=== PATIENT | male | born 1930 | race Caucasian/White ===

== ENCOUNTER 2017-05-20 18:06 | Emergency (ER) | payer OTHER ==
[~2017-05-20] VITALS: Ht 167.6 cm; Wt 96.1 kg
[~2017-05-20 18:06] MED LIST: ADULT LOW DOSE81 M1 PO; ASPIRIN81 M1 PO; CALICUM 500+D1 EACH PO; CIPROFLOXACIN H10 ML LEFT EYE; COLACE100 MG PO; Caltrate 600/400 PO; ENALAPRIL MALEA20 M1 PO; ENALAPRIL MALEA20 MG PO; FEOSOL325 MG PO; GLUCOSA-CHOND-1 EACH PO; GLUCOSAMIN-CHO1 EACH PO; METOPROLOL SUCC50 MG PO; MULTI-VITAMIN1 EAC4 PO; Move Free Advanced T PO; Naprosyn PO; PRAVASTATIN SOD20 MG PO; PROMETHAZINE HC25 M1 PO; PROTONIX40 MG PO; Phenergan PO; TOPROL XL50 MG PO; Theragran PO; VASOTEC10 MG PO; XARELTO10 MG PO; XARELTO20 MG PO; Xarelto PO; ZOCOR20 MG PO; Zocor PO
[2017-05-20 18:43] LABS: BASOPHIL (%) 0.6 % (0-1); EOSINOPHIL (%) 0.9 % (0-5); EOSINOPHIL COUNT 0.1 K/uL (0-0.3); HEMATOCRIT 41.2 % (38.0-50.0); HEMOGLOBIN 14.2 G/DL (12.5-16.6); IMMATURE GRANULOCYTE (%) 0.3 % (0.0-0.7); LYMPHOCYTE (%) 15.7 % (15-42); MCH 34.1 PG (29.0-34.0); MCHC 34.5 G/DL (30.0-36.0); MCV 98.8 FL (86-99); MONOCYTE (%) 15.1 % (3-12); NEUTROPHIL (%) 67.4 % (45-76); NEUTROPHIL COUNT 4.4 K/uL (1.8-6.4); PLATELET COUNT 153 K/uL (156-360); RBC DIS.WIDTH-SD 43.8 % (39-53); RED BLOOD COUNT 4.17 M/uL (4.00-5.50); WHITE BLOOD COUNT 6.5 K/uL (4.1-10.2)
[2017-05-20 18:50] LABS: INTER. NORMALIZED RATIO 1.4
[2017-05-20 18:53] LABS: CHLORIDE 107 mEq/L (99-109); POTASSIUM 4.6 mEq/L (3.7-5.4); PTT 33.2 SEC (25-37); SODIUM 139 mEq/L (136-147)
[2017-05-20 18:54] LABS: GLUCOSE 109 mg/dL (70-99)
[2017-05-20 18:58] LABS: GFR ESTIMATE (CALCULATED) > 59 mL/min/ (58.99-99999)
[2017-05-20 18:59] LABS: UREA NITROGEN (BUN) 11 mg/dL (9-23)
[2017-05-20 19:05] LABS: TROP-I INTERPRETATION NEGATIVE; TROPONIN-I < 0.01 ng/mL (0.0-0.30)
[2017-05-20 20:04] LABS: MAGNESIUM 1.8 mg/dL (1.3-2.7)
[2017-05-20 20:46] VITALS: BP 157/98
== END 2017-05-20 20:46 | disposition home or self-care (01) ==
LOC: EME 18:06
PROVIDERS: Emergency Medicine
DX: R00.2 Palpitations (principal); I48.91 Unspecified atrial fibrillation; E78.5 Hyperlipidemia, unspecified; I10 Essential (primary) hypertension; Z87.440 Personal history of urinary (tract) infections; Z88.1 Allergy status to other antibiotic agents; Z88.0 Allergy status to penicillin
CPT/HCPCS: 71045; 80048; 83735; 84443; 84484; 85025; 85610; 85730; 93005; 99281; 99284

== ENCOUNTER 2017-07-26 15:59 | Observation (INO) | payer OTHER ==
[~2017-07-26] VITALS: Ht 170.2 cm; Wt 91.6 kg
[~2017-07-26 15:59] MED LIST changes: -VASOTEC10 MG PO; +VASOTEC20 MG PO; +ZOCOR10 MG PO
[2017-07-26 18:02] LABS: BASOPHIL (%) 0.4 % (0-1); EOSINOPHIL (%) 0.3 % (0-5); HEMATOCRIT 40.5 % (38.0-50.0); HEMOGLOBIN 14.6 G/DL (12.5-16.6); IMMATURE GRANULOCYTE (%) 0.4 % (0.0-0.7); LYMPHOCYTE (%) 11.5 % (15-42); LYMPHOCYTE COUNT 0.8 K/uL (1.0-2.8); MCH 34.7 PG (29.0-34.0); MCV 96.2 FL (86-99); MONOCYTE (%) 13.4 % (3-12); NEUTROPHIL COUNT 5.4 K/uL (1.8-6.4); PLATELET COUNT 120 K/uL (156-360); RBC DIS.WIDTH-CV 12.5 % (11.8-14.6); RBC DIS.WIDTH-SD 44.3 % (39-53); RED BLOOD COUNT 4.21 M/uL (4.00-5.50); WHITE BLOOD COUNT 7.3 K/uL (4.1-10.2)
[2017-07-26 18:08] LABS: INTER. NORMALIZED RATIO 1.4
[2017-07-26 18:11] LABS: PTT 33.4 SEC (25-37)
[2017-07-26 18:15] LABS: ALBUMIN 3.9 g/dL (3.2-4.8); CHLORIDE 97 mEq/L (99-109); POTASSIUM 4.6 mEq/L (3.7-5.4); SODIUM 131 mEq/L (136-147)
[2017-07-26 18:18] LABS: GLUCOSE 116 mg/dL (70-99); TOTAL PROTEIN 7.2 g/dL (6.4-8.3)
[2017-07-26 18:19] LABS: TOTAL BILIRUBIN 1.5 mg/dL (0.0-1.0)
[2017-07-26 18:20] LABS: SERUM ETHYL ALCOHOL < 10 mg/dL
[2017-07-26 18:21] LABS: ALKALINE PHOSPHATASE 105 IU/L (3-129); GFR ESTIMATE (CALCULATED) > 59 mL/min/ (58.99-99999)
[2017-07-26 18:22] LABS: UREA NITROGEN (BUN) 8 mg/dL (9-23)
[2017-07-26 18:23] LABS: AST (GOT) 54 IU/L (2-34)
[2017-07-26 18:24] LABS: ALT (GPT) 22 IU/L (3-49)
[2017-07-26 18:26] LABS: TROP-I INTERPRETATION NEGATIVE; TROPONIN-I 0.01 ng/mL (0.0-0.30)
[2017-07-26] MEDS ORDERED: LIBRIUM25 MG PO (19:58)
[2017-07-26] MEDS ORDERED: ELIQUIS5 MG PO (21:56)
[2017-07-26] MEDS ORDERED: VITAMIN D31000 UNIT PO (21:56)
[2017-07-27 01:12] VITALS: BP 195/89
[2017-07-27 04:14] VITALS: BP 162/86
[2017-07-27 04:55] LABS: HEMATOCRIT 37.1 % (38.0-50.0); HEMOGLOBIN 13.3 G/DL (12.5-16.6); MCH 34.7 PG (29.0-34.0); MCHC 35.8 G/DL (30.0-36.0); MCV 96.9 FL (86-99); PLATELET COUNT 118 K/uL (156-360); RBC DIS.WIDTH-CV 12.5 % (11.8-14.6); RBC DIS.WIDTH-SD 44.8 % (39-53); RED BLOOD COUNT 3.83 M/uL (4.00-5.50); WHITE BLOOD COUNT 6.3 K/uL (4.1-10.2)
[2017-07-27 05:09] LABS: ALBUMIN 3.6 g/dL (3.2-4.8); CHLORIDE 100 mEq/L (99-109); POTASSIUM 4.2 mEq/L (3.7-5.4); SODIUM 133 mEq/L (136-147)
[2017-07-27 05:10] LABS: MAGNESIUM 1.8 mg/dL (1.3-2.7)
[2017-07-27 05:12] LABS: GLUCOSE 114 mg/dL (70-99); TOTAL PROTEIN 6.3 g/dL (6.4-8.3)
[2017-07-27 05:15] LABS: ALKALINE PHOSPHATASE 93 IU/L (3-129); GFR ESTIMATE (CALCULATED) > 59 mL/min/ (58.99-99999)
[2017-07-27 05:16] LABS: TOTAL BILIRUBIN 1.9 mg/dL (0.0-1.0); UREA NITROGEN (BUN) 10 mg/dL (9-23)
[2017-07-27 05:17] LABS: AST (GOT) 40 IU/L (2-34)
[2017-07-27 05:18] LABS: ALT (GPT) 14 IU/L (3-49)
[2017-07-27 08:09] VITALS: BP 170/85
[2017-07-27] MEDS ORDERED: CIPROFLOXACIN H10 ML BOTH EYES (11:34)
== END 2017-07-27 14:18 | disposition home or self-care (01) ==
LOC: EME 15:59 → 4SOUTH 23:43 → EDOF 23:43 → ENRESERV 23:44 → 4SOUTH 07-27 00:58
PROVIDERS: Emergency Medicine; Physician Assistant
DX: F10.239 Alcohol dependence with withdrawal, unspecified (principal); I48.91 Unspecified atrial fibrillation; I10 Essential (primary) hypertension; E78.5 Hyperlipidemia, unspecified; Z88.0 Allergy status to penicillin; E66.9 Obesity, unspecified; H10.9 Unspecified conjunctivitis
CPT/HCPCS: 70450; 80053; 81003; 83735; 84484; 85025; 85027; 85610; 85730; 93005; 99281; 99285; G0378; G0480; J2060; J3411; J7030